=== PATIENT | male | born 1960 | race Caucasian/White ===

== ENCOUNTER 2017-01-10 19:56 | Emergency (ER) | payer OTHER ==
[2017-01-10 20:25] VITALS: PULSE 75; TEMP 97.9
[2017-01-10 20:32] VITALS: BP 156/73; RESP 16; O2SAT 97
== END 2017-01-10 21:00 | disposition home or self-care (01) | DRG 392 ==
LOC: ED 19:56
DX: K22.2 Esophageal obstruction (principal)
CPT/HCPCS: 99282

== ENCOUNTER 2017-04-18 06:33 | Day surgery (SDC) | payer OTHER ==
[2017-04-18] MEDS ORDERED: PROPOFOL 500 MG/50 ML EMU IV ONE (07:07)
[2017-04-18] MEDS ORDERED: LIDOCAINE HCL 1% MPF SOL ONE (07:07)
[2017-04-18 08:33] VITALS: TEMP 97.6
[2017-04-18 08:51] VITALS: BP 125/60; O2SAT 96
[2017-04-18 08:57] VITALS: PULSE 67; RESP 20
== END 2017-04-18 09:10 | disposition home or self-care (01) | DRG 392 ==
LOC: SURG 06:33
PROVIDERS: ATTEND Internal Medicine Gastroenterology
DX: R13.10 Dysphagia, unspecified (principal); K22.2 Esophageal obstruction; D64.9 Anemia, unspecified; K44.9 Diaphragmatic hernia without obstruction or gangrene; K29.80 Duodenitis without bleeding; K29.50 Unspecified chronic gastritis without bleeding
CPT/HCPCS: 82962; 99001; J2001; J2704

== ENCOUNTER 2017-08-22 07:01 | Day surgery (SDC) | payer OTHER ==
[2017-08-22] MEDS ORDERED: LIDOCAINE HCL 1% MPF SOL ONE (07:18)
[2017-08-22] MEDS ORDERED: PROPOFOL 500 MG/50 ML EMU IV ONE (07:18)
[2017-08-22 09:03] VITALS: TEMP 98.2
[2017-08-22 09:25] VITALS: PULSE 65; RESP 18; O2SAT 98
[2017-08-22 09:27] VITALS: BP 125/60
== END 2017-08-22 09:39 | disposition home or self-care (01) | DRG 392 ==
LOC: SURG 07:01
PROVIDERS: ATTEND Internal Medicine Gastroenterology
DX: R13.10 Dysphagia, unspecified (principal); K22.2 Esophageal obstruction; K21.9 Gastro-esophageal reflux disease without esophagitis; K44.9 Diaphragmatic hernia without obstruction or gangrene; Z87.19 Personal history of other diseases of the digestive system; E11.9 Type 2 diabetes mellitus without complications; Z79.84 Long term (current) use of oral hypoglycemic drugs
CPT/HCPCS: 82962; 99001; J2001; J2704

== ENCOUNTER 2018-07-11 09:05 | Day surgery (SDC) | payer OTHER ==
[2018-07-11] MEDS ORDERED: DEXAMETHASONE SOD PHOS PF 10 MG/ML SOL IJ ONE (09:47)
[2018-07-11] MEDS ORDERED: BUPIVACAINE HCL 0.25% MPF 30 ML SOL INFIL ONE ×2 (09:47→10:35)
[2018-07-11] MEDS: FENTANYL 100MCG/2ML SOL ONE ×2 (09:58→10:31)
[2018-07-11] MEDS: MIDAZOLAM 2 MG/2 ML SOL ONE ×2 (09:58→10:11)
[2018-07-11 11:03] VITALS: BP 125/61; PULSE 70; RESP 20; TEMP 97.7; O2SAT 95
== END 2018-07-11 11:20 | disposition home or self-care (01) | DRG 552 ==
LOC: SURG 09:05
PROVIDERS: ATTEND Nurse Anesthetist, Certified Registered
DX: M48.03 Spinal stenosis, cervicothoracic region (principal); E11.9 Type 2 diabetes mellitus without complications; Z79.4 Long term (current) use of insulin
CPT/HCPCS: 82962; J2250; J3010; J1100

== ENCOUNTER 2018-11-19 15:56 | Emergency (ER) | payer OTHER ==
[2018-11-19] MEDS ORDERED: SODIUM CHLORIDE 0.9% 1000ML 1,000 ML IV ONE ×3 (16:14→18:30)
[2018-11-19] MEDS ORDERED: ALBUTEROL/IPRATROPIUM 1 VIAL SOL INH ONE (16:17)
[2018-11-19] MEDS ORDERED: SODIUM CHLORIDE 0.9% 50 ML 25 ML IV PRN (16:19)
[2018-11-19] MEDS ORDERED: CEFTRIAXONE 1 GM PDS 2 GM in SODIUM CHLORIDE 0.9% 100 ML 100 ML IV ONE (16:19)
[2018-11-19] MEDS ORDERED: CEFTRIAXONE 1 GM PDS ONE ×2 (16:24)
[2018-11-19] MEDS ORDERED: ALBUTEROL/IPRATROPIUM 1 VIAL SOL ONE (16:24)
[2018-11-19 16:47] LABS: HEMATOCRIT 33 % (39-53); HEMOGLOBIN 11.1 gm/dl (13.5-17.7); MEAN CORPUSCULAR HEMOGLOBIN 31.2 pg (27.0-32.0); MEAN CORPUSCULAR HGB CONC 33.3 gm/dl (32.0-36.0); MEAN CORPUSCULAR VOLUME 94 fL (80-100)
[2018-11-19 16:56] LABS: LACTIC ACID 0.9 mMol/L (0.0-2.0)
[2018-11-19 16:57] LABS: ABG PH 7.4 (7.35-7.45)
[2018-11-19 17:07] LABS: ALBUMIN 2.7 gm/dl (3.4-5.0); BILIRUBIN,TOTAL 0.5 mg/dl (0.2-1.0); CALCIUM 7.4 mg/dl (8.5-10.1); CREATININE 3.62 mg/dl (0.80-1.30); POTASSIUM 3.8 mMol/L (3.5-5.1); TOTAL PROTEIN 6.2 gm/dl (6.4-8.2)
[2018-11-19 17:09] LABS: TROP I 0.085 ng/ml (0.000-0.056)
[2018-11-19 17:27] LABS: BAND NEUTROPHILS % (MANUAL) 14 %; BASOPHILS % (MANUAL) 0 % (0-3); EOSINOPHILS % (MANUAL) 0 % (0-9); LYMPHOCYTES % (MANUAL) 13 % (10-50); MONOCYTES % (MANUAL) 14 % (0-12); NEUTROPHILS % (MANUAL) 59 % (37-80)
[2018-11-19 17:28] LABS: ANISOCYTOSIS SLIGHT AMT
[2018-11-19] MEDS ORDERED: ONDANSETRON HCL 4 MG/2 ML SOL IV ONE (17:37)
[2018-11-19] MEDS ORDERED: ASPIRIN 81 MG CHEWABLE CTB PO ONE (17:53)
[2018-11-19] MEDS ORDERED: ASPIRIN 81 MG CHEWABLE CTB ONE (17:54)
[2018-11-19] MEDS ORDERED: MORPHINE SULFATE 10 MG/ML SOL ONE (17:54)
[2018-11-19] MEDS ORDERED: ONDANSETRON HCL 4 MG/2 ML SOL ONE (17:54)
[2018-11-19] MEDS ORDERED: MORPHINE SULFATE 10 MG/ML SOL IV ONE (18:05)
[2018-11-19 19:09] VITALS: TEMP 98.2
[2018-11-19 19:13] VITALS: BP 93/50; PULSE 66; RESP 20; O2SAT 92
[2018-11-20] MEDS ORDERED: ASPIRIN 325 MG TAB PO SCH (09:00)
== END 2018-11-19 19:27 | disposition short-term general hospital (02) | DRG 281 ==
LOC: ED 15:56
DX: I21.4 Non-ST elevation (NSTEMI) myocardial infarction (principal); N17.9 Acute kidney failure, unspecified; J20.9 Acute bronchitis, unspecified; E86.0 Dehydration; I95.9 Hypotension, unspecified; E83.51 Hypocalcemia; Z79.4 Long term (current) use of insulin; E11.9 Type 2 diabetes mellitus without complications
CPT/HCPCS: 36415; 36600; 71045; 80053; 82803; 83880; 84484; 85007; 85027; 85378; 87040; 93005; 96365; 96366; 96374; 96375; 99070; 99291; 99292; J0696; J2270; J2405